=== PATIENT | female | born 1955 | race Caucasian/White ===

== ENCOUNTER 2022-01-14 15:16 | Outpatient (CLI) | payer MEDICARE, SELFPAY ==
--- NOTE | ~2022-01-14 | US_ITS ---
EXAMINATION: US pelvic complete w TV DATE: 01/14/2022 16:11 INDICATION: Postmenopausal bleeding Comparison:No prior studies for comparison. TECHNIQUE: Multiple transabdominal and endovaginal sonographic images of the pelvis performed. FINDINGS: The uterus measures 8.3 x 4.1 x 5.2 cm. There is echogenic mass in the endometrium measurin g 3.1 x 1.6 x 2.1 cm containing internal vascularity, consistent with a polyp. The endometrial comple x measures 2.5 mm. The ovaries are nonvisualized. There is no free fluid in the pelvis. There are no abnormal masses seen on either side. IMPRESSION: 1. Echogenic mass within the endometrium measuring up to 3.1 cm, consistent with a polyp. Reviewed, dictated and finalized at location A. IMPRESSION: 1. Echogenic mass within the endometrium measuring up to 3.1 cm, consistent wit h a polyp.
== END 2022-01-14 15:17 | disposition home or self-care (01) ==
PROVIDERS: PCP Family Medicine; Visit Provider Student in an Organized Health Care Education/Training Program
DX: N95.0 Postmenopausal bleeding (principal)
CPT/HCPCS: 76830; 76856

== ENCOUNTER 2022-05-02 00:33 | Day surgery (SDC) | payer MEDICARE, MEDICAID, SELFPAY ==
--- NOTE | 2022-04-24 12:43 | PC.NURSE ---
Report to the Outpatient Waiting Room, entrance under the green pavilion located off [facility], at time _0600 on date _05/02/22 . OR Time: _729 . - You and your visitor will be asked to self-screen and do not enter if you have any COVID symptoms. - Only one visitor and NO children visitors are allowed at this time. - The patient visitor is requested to leave or wait in car when not with patient due to restrictions. - A mask is required within the hospital. Patients may have clear liquids (water, carbonated beverages, clear teas, apple juice) until 3 hours prior to surgery with a maximum of 20 ounces. - No food from midnight until time of surgery - Infants may have breast milk until 4 hours before surgery, infant formula 6 hours prior to surgery. - Children will be allowed to drink immediately following surgery. If applicable, please bring a bottle or sippy cup to assist with drinking. Juice, water, soda, and popsicles are readily available. For infants on formula, please bring formula the day of surgery. Pacifiers are allowed. Take the following medications with a SIP of water the morning of surgery: NONE Medications to discontinue per physician ____NONE Date to take last dose Please no make-up, nail iranian, hairspray, perfume, deodorant, or body powder the day of surgery. No jewelry (including any body piercings) or valuables the day of surgery, leave them at home. Please take a shower or bath the night before, or the morning of, surgery with an antibacterial soap. Wear comfortable, loose fitting clothing. Children are encouraged to wear pajamas. - Jewelry must be removed prior to entering the operating room. Rings and piercings that are not removed may be cut off. - The hospital will not accept responsibility for valuables. - Please leave all valuables, including medications, at home the day of surgery. If you are going home after surgery, a licensed school boat driver must drive you home. - NO public transportation without another adult. - We recommend that an adult stay with you for 24 hours following discharge. - We also recommend that you do not drive, make important decision, drink alcoholic beverages, or take any drugs that were not prescribed by your health care provider for at least 24 hours after your discharge time. For Pediatric surgeries, we recommend two adults accompany the child home (only one inside the building at this time). Follow any additional instructions given to you from your surgeon. If you or anyone in your household have experienced Covid symptoms in the past week, please notify your surgeon or the nurse liaison at the phone number below for possible testing. Telephone instructions given to _PATIENT and asked if any additional questions and then verbalized understanding. Patient advised to call surgeon office or pre surgery nurse liaison [phone] if any additional questions.
[2022-04-24 12:48] VITALS: BMI 42.5
--- NOTE | 2022-05-01 22:34 | PM.IMHP ---
H&P: HPI History of Present Illness Date/Time: 05/01/22 22:34 Chief Complaint: Postmenopausal bleeding Narrative: Patient is a 67yo woman who presented to gynecology office in 12/2021 with complaints of postmenopausal bleeding.?Pelvic ultrasound performed on 01/14/22 showed findings suggestive of a 3cm endometrial polyp. Discussion had with patient regarding further evaluation and management and decision made to proceed with a hysteroscopy and D&C. Patient was also noted to have a right vulvar lesion on physical exam. Also discussed performing vulvar biopsy at same time. In general, patient doing well without complaints. Review of Systems Review of Systems: All systems reviewed & are unremarkable except as noted in HPI and below Constitutional: Constitutional: Reports as per HPI and Reports no additional constitutional complaints Eyes: Eyes: Reports as per HPI and Reports no additional eye complaints ENT: Reports system reviewed and no additional complaints, except as documented and Reports as per HPI Cardiovascular: Cardiovascular: Reports as per HPI and Reports no additional cardiovascular complaints Respiratory: Respiratory: Reports as per HPI and Reports no additional respiratory complaints Gastrointestinal: Gastrointestinal: Reports as per HPI and Reports no additional gastrointestinal complaints Genitourinary: Genitourinary: Reports no additional female genitourinary complaints and Reports as per HPI Musculoskeletal: Musculoskeletal: Reports no additional musculoskeletal complaints and Reports as per HPI Integumentary/Breasts: Skin/Breast: Reports system reviewed and no additional complaints, except as docu and Reports as per HPI Neurologic: Reports system reviewed and no additional complaints, except as documented and Reports as per HPI Psychiatric: Psychiatric: Reports no additional psychiatric complaints and Reports as per HPI Endocrine: Endocrine: Reports no additional endocrine complaints and Reports as per HPI Hematologic/Lymphatic: Hematologic/Lymphatic: Reports no additional hematologic/lymphatic complaints and Reports as per HPI Allergic/Immunologic: Allergic/Immunologic: Reports no additional allergic/immunologic complaints and Reports as per HPI PMF Past Medical History Medical History History of vaginal delivery x2 Surgical History Surgical History History of colonoscopy 2015 normal Family History Family History Father Family history of lung cancer Mother Diabetes mellitus Sibling Diabetes mellitus Uterine cancer Social History Social History Smoking status: Never smoker Second hand tobacco smoke exposure: No Alcohol intake: never Substance use: current Substance use type: marijuana Last use: 04/17/22 Living arrangements: with family Spiritual care concerns: No Meds Home Medications and Allergies Home Medications Medication Instructions Recorded Confirmed Type No Home Medications 01/23/22 05/02/22 History Allergies Allergy/AdvReac Type Severity Reaction Status Date / Time No Known Allergies Allergy Verified 05/02/22 08:25 Exam Const: General: cooperative, healthy appearing, comfortable and no acute distress HENMT: Head: normal to inspection Ears: hearing grossly normal bilaterally Eyes: General: appearance normal, both eyes and all related structures Neck: Thyroid: thyroid normal Resp: Effort & Inspection: normal respiratory effort Auscultation: clear to auscultation bilaterally Cardio: Rate: regular rate Rhythm: regular rhythm GI: Inspection: non-distended GI Palp: Yes Soft to palpation and No Tenderness to palpation present (GI) : Other: deferred to OR Skin: General skin exam: normal color and no rashes or
[2022-05-02 08:14] VITALS: BP 172/91; PULSE 81; RESP 16; TEMP 36.1; O2SAT 98
[2022-05-02] MEDS: ACETAMINOPHEN 500 MG TABLET 1000 MG PO (08:27)
[2022-05-02] MEDS: LACTATED RINGERS 1,000 ML 30 ML IV CONT (08:34)
--- NOTE | 2022-05-02 09:13 | WPDANESEPPF ---
Anes - Initial Pre Proc Eval Procedure: Operation Date: 05/02/22 10:00 Proposed Procedures p Hysteroscopy Dilation and Curettage, Polypectomy, Myosure, - Ju Schultz MD s Biopsy Vulvar Lesion - Ju Schultz MD Date/Time: 05/02/22 09:13 Surgeon: Ju Schultz MD Pre Op Diagnosis: endometrial polyp, vulvar lesion Patient Data Age: 67 Gender: F Height: 1.6 m Weight: 109.8 kg Last Vital Signs Temp 97 F L 05/02/22 08:14 Pulse 81 05/02/22 08:14 Resp 16 05/02/22 08:14 BP 172/91 H 05/02/22 08:14 Pulse Ox 98 05/02/22 08:14 O2 Del Method Room Air 05/02/22 08:14 Allergies Allergy/AdvReac Type Severity Reaction Status Date / Time No Known Allergies Allergy Verified 05/02/22 08:25 Home Medications Medication Instructions Recorded Confirmed Type No Home Medications 01/23/22 05/02/22 History Patient hx anesthesia problems: post op nausea/vomiting Family hx anesthesia problems: none Results Review: All pre-operative results and documents have been reviewed as part of the pre-operative evaluation. [facility] Past Medical History Medical History History of vaginal delivery x2 Surgical History Surgical History History of colonoscopy 2014 normal Family History Family History Father Family history of lung cancer Mother Diabetes mellitus Sibling Diabetes mellitus Uterine cancer Social History Social History Smoking status: Never smoker Second hand tobacco smoke exposure: No Alcohol intake: never Substance use: current Substance use type: marijuana Last use: 04/17/22 Living arrangements: with family Spiritual care concerns: No Anes - Eval Final PreProcedure Day of Procedure 05/02/22 09:13 Patient weight: morbidly obese Heart: regular rate and rhythm Lungs: clear to auscultation Airway: Mallampati scale class II Neurological: alert and oriented Last oral intake: >/= 8 hours ASA classification: III Emergent: no Anesthetic plan: proceed Anesthesia type and monitoring: general GIVS and standard monitoring Results Review: All pre-operative results and documents have been reviewed as part of the pre-operative evaluation. Informed Consent: The patient's anesthetic plan and its attendant risks and benefits were discussed with the patient/family/POA. Questions were solicited and answers provided to the satisfaction of the patient/family/POA.
--- NOTE | 2022-05-02 09:46 | WPDHPUPDATE1 ---
History and Physical Update Update Date/Time: 05/02/22 09:46 History and Physical has been reviewed, including an updated exam of the patient. There are NO changes in the patient's condition. Risks, benefits, and alternatives have been discussed and questions answered. Patient agrees to proceed with procedure.
[2022-05-02] MEDS: LIDOCAINE HCL 1% PF 30 ML VIAL 10 ML INFILTRATE (10:18)
[2022-05-02 10:51] VITALS: BP 130/73; PULSE 74; RESP 16; O2SAT 99
--- NOTE | 2022-05-02 11:00 | W.PM.PROC2 ---
Procedure Note - Detailed Date of Procedure 05/02/22 Pre-op Diagnosis endometrial polyp, vulvar lesion Post-op Diagnosis Other (Endometrial polyp) Procedure Performed Hysteroscopy, dilation and curettage, endometrial polypectomy with MyoSure Surgeon Ju Schultz MD Anesthesia MAC Findings Two large endometrial polyps, otherwise, normal appearing endometrial cavity, bilateral ostia visualized Description of Procedure The patient was taken to operating room where she self-transferred to the operating room table. She was placed in dorsal supine position. Anesthesia was administered and found to be adequate. The patient was repositioned in dorsal lithotomy position with the use of Chi stirrups. She was prepped and draped in usual sterile fashion. A time-out was performed. A red rubber catheter was used to drain the bladder of 2 cc concentrated urine. A bivalve speculum was inserted into the vagina. The cervix was well visualized with what appeared to be a large nabothian cyst just at the introitus. The anterior lip of the cervix was grasped with a single-tooth tenaculum. A paracervical block was performed with 1% lidocaine with 5 cc of lidocaine on both sides. The cervix was serially dilated. A hysteroscope was introduced into the endometrial cavity. Two large endometrial polyps were visualized. Decision was made to convert to the XL MyoSure hysteroscope. The MyoSure hysteroscope was introduced into endometrial cavity and the MyoSure device was advanced. Device was activated and utilized to evacuate polyps from the endometrial cavity. After the majority of endometrial polyps were evacuated from the cavity, the MyoSure system was removed. A medium-sized curette was then introduced into the cavity. All quadrants of the endometrium were explored. A minimal amount of tissue was obtained and prepared to be sent to pathology for analysis. Several photographs were taking throughout entire procedure. Procedure was deemed complete. Tenaculum was removed from the cervix. A minimal amount of oozing was noted from the cervix. A small amount of Monsel's was applied with excellent hemostasis. The vagina was cleansed and dried and the speculum was removed. The remainder of the patient was also cleansed and dried. Previously noted right vulvar lesion was no longer present on exam. All sponge, lap, and instrument counts were correct at end of the procedure. Patient was awakened from anesthesia without difficulty and transported to the recovery room in stable condition. Estimated Blood Loss -5.0 IV Fluids 700 (hysteroscopic fluid: 3500cc in/3450cc out) Urine Output -2.0 Drains No Packing No Pathology Yes (endometrial shavings, endometrial curettings) Complications No immediate complications Condition Stable Disposition Same day [facility] Billing Surgery - Charge Forward: Surgery Billing
--- NOTE | 2022-05-02 11:13 | PM.DS ---
DS: Admitting Diagnosis Discharge Date 05/02/22 Admitting Diagnosis Endometrial polyp DS: Summary Hospital Course Hospital Course: Uncomplicated Time Spent with Patient Time attestation: Total time spent providing and/or coordinating discharge services: DS: Data Data Completed and Pending Pending studies at discharge: Pending at discharge 05/02/22 10:25 Surgical [PTH] Routine Discharge Plan Discharge Patient Disposition: Home, Self-Care Discharge Instructions: Call office [phone] to schedule postoperative visit in 2 weeks. You may take Ibuprofen 600mg every 6 hours as needed for pain. Call office or go to Emergency Department for severe headache, chest pain, shortness of breath, nausea, vomiting, or heavy vaginal bleeding > 2 pads per hour Some Complications to Watch for: ? Excessive incisional or vaginal drainage (more than one pad an hour). Additional Instructions: ? Expect some vaginal spotting for 2-4 days. ? Nothing vaginally (i.e. douching, intercourse, tampons) until follow up visit. Stand Alone Forms: General Discharge Instructions Follow-up/Referrals: Ju Schultz MD [Physician] - Discharge Medications: No Action No Home Medications
[2022-05-02 11:20] VITALS: BP 137/67; PULSE 62; RESP 16
== END 2022-05-02 11:50 | disposition home or self-care (01) ==
PROVIDERS: PCP Family Medicine; Visit Provider Student in an Organized Health Care Education/Training Program
PROC: 0U5B8ZZ Destruction of Endometrium, Via Natural or Artificial Opening Endoscopic (ICD-10-PCS; CPT 58563; principal; 2022-05-02 10:00)
DX: N84.0 Polyp of corpus uteri (principal); F12.90 Cannabis use, unspecified, uncomplicated; E66.9 Obesity, unspecified; Z68.41 Body mass index [BMI] 40.0-44.9, adult
CPT/HCPCS: 58558; 88305; A9270; J2250; J2704; J3010; J7030; J7120